=== PATIENT | male | born 1995 | race Caucasian/White ===

== ENCOUNTER → 2022-09-22 | Outpatient (CLI) | payer OTHER ==
[~2022-09-22] MED LIST: FLIN1CHW PO; PROT1TAB2 PO; RANI150T PO; SERT25TA21 PO; TUMS500C PO
[2022-09-22 14:24] LABS: HEPATITIS B SURFACE ANTIGEN NEGATIVE (NEGATIVE)
[2022-09-22 14:45] LABS: HEPATITIS C VIRUS ABY INDEX 0.1 INDEX (<0.8)
[2022-09-22 14:46] LABS: HEPATITIS B CORE ANTIBODY IGM NEGATIVE (NEGATIVE)
[2022-09-22 14:51] LABS: HIV 1&2 SCREEN CENTAUR NEGATIVE (NEGATIVE)
[2022-09-22 15:44] LABS: GC DNA AMPLIFICATION NEGATIVE (NEGATIVE)
== END ==
LOC: M WUC 09:43
PROVIDERS: ATTEND Internal Medicine
DX: Z20.9 Contact with and (suspected) exposure to unspecified communicable disease (principal)